=== PATIENT | female | born 1985 | race Caucasian/White ===

== ENCOUNTER 2018-07-04 05:37 | Inpatient (IN) | payer MEDICAID, OTHER ==
[~2018-07-04] VITALS: Ht 157.5 cm; Wt 63.1 kg
[2018-07-04 05:40] VITALS: Ht 157.5 cm; Wt 63.1 kg
[2018-07-04] MEDS ORDERED: METHYLERGONOVINE 0.2 MG INJ IM PRN ×2 (06:00→16:00)
[2018-07-04] MEDS ORDERED: OXYTOCIN 30 UNITS/LR 500 ML IV PRN ×2 (06:00→16:00)
[2018-07-04] MEDS ORDERED: CEFAZOLIN 2 GM/50 ML (PMX) 50 ML IVPB SCH (06:00)
[2018-07-04] MEDS ORDERED: CARBOPROST 250 MCG INJ IM PRN ×2 (06:00→16:00)
[2018-07-04] MEDS ORDERED: MISOPROSTOL 200 MCG TAB PR PRN ×2 (06:00→16:00)
[2018-07-04] MEDS: LACTATED RINGER'S 1,000 ML IV SCH ×2 (06:09→07:25)
[2018-07-04] MEDS ORDERED: AZITHROMYCIN 500MG/NS (PMX) 250 ML IVPB ONE (07:00)
[2018-07-04] MEDS ORDERED: CITRIC ACID/NA CITRATE 30 ML CUP ONE ×2 (07:12→07:13)
--- NOTE | 2018-07-04 07:12 | PREAC ---
Date/Time of Note Date/Time of Note DATE: 07/04/18 TIME: 07:11 Anesthesia Eval and Record Evaluation Time Pre-Procedure Interview DATE: 07/04/18 TIME: 07:11 Age 32 Sex female NPO: 8 hrs Preoperative diagnosis repeat c section Planned procedure csection Past Medical History Past Medical History: Includes : Gestational age: (39.1) Surgery & Anesthesia Issues No known issue Meds Anticoagulation: No Beta Kerrie within 24 hr: No Reason Beta Kerrie not given: Pt. not on B-Kerrie Current Medications Lactated Ringer's 1,000 ml @ 125 mls/hr Q8H IV Last administered on 07/04/18at 06:09; Admin Dose 125 MLS/HR; Start 07/04/18 at 05:42 Cefazolin Sodium/ Dextrose 50 ml @ 100 mls/hr ONCE IVPB ; Start 07/04/18 at 06:00 Oxytocin/Lactated Ringer's 500 ml @ 125 mls/hr POST IV ; Start 07/04/18 at 06:00 Oxytocin/Lactated Ringer's 500 ml @ 0 mls/hr ONCE PRN IV .VAGINAL BLEEDING; Start 07/04/18 at 06:00 Methylergonovine Maleate (Methergine) 0.2 mg ONCE PRN IM .VAGINAL BLEEDING; Start 07/04/18 at 06:00 Carboprost Tromethamine (Hemabate) 250 mcg ONCE PRN IM .VAGINAL BLEEDING; Start 07/04/18 at 06:00 Misoprostol (Cytotec) 1,000 mcg ONCE PRN ID .VAGINAL BLEEDING; Start 07/04/18 at 06:00 Azithromycin 250 ml @ 250 mls/hr ONCE ONCE IVPB ; Start 07/04/18 at 07:00; Stop 07/04/18 at 07:59 Meds reviewed: Yes Allergies Uncoded Allergies: SEAFOOD (Allergy, Severe, RASH, 07/04/18) Allergies Reviewed: Yes Labs/Studies Labs Reviewed: Reviewed by anesthesiologist Result Diagram: 07/04/18604 Laboratory Tests 07/04/18 06:05 Blood Bank Test 07/04/18 06:05 Antibody Screen NEGATIVE Blood Type O POSITIVE Rh Immune Globulin Candidate NO test: Positive Studies: ECG (n/a), CXR (n/a) Pre-procedure Exam Airway: Adequate mouth opening Mallampati: Mallampati I Teeth: Normal Lung: Normal Heart: Normal ASA Physical Status ASA physical status: 2 Emergency: None Planned Anesthetic Neuraxial: Spinal Planned Pain Management Sub-arachniod narcotics, Parenteral pain med Pre-operative Attestations Prior to commencing anesthesia and surgery, the patient was re-evaluated, there was verification of: *The patient's identity *The results of appropriate recent lab work and preoperative vital signs *The above evaluation not changing prior to induction *Anesthetic plan, risk benefits, alternative and complications discussed with patient/family; questions answered; patient/family understands, accepts and wishes to proceed. JAILYN BELCHER MD Jul 04, 2018 07:12
[2018-07-04] MEDS ORDERED: CITRIC ACID/NA CITRATE 30 ML CUP PO ONE (07:30)
--- NOTE | 2018-07-04 08:51 | HP ---
Date/Time of Note Date/Time of Note DATE: 07/04/18 TIME: 08:47 OB - History Hx of Present Free Text/Dictation 32 years old -0-1-1 with single intrauterine at 39 weeks with previous delivery desires repeat delivery. She declined the TOLAC. She states good movement. She denies nausea, vomiting, shortness of breath, chest pain, headache, visual changes, vaginal bleeding or LOF. Chief Complaint: Scheduled for repeat delivery Last Menstrual Period: Oct 03, 2017 Estimated Due Date: July 11, 2018 : 3 Para: 1 Spontaneous : 1 Therapeutic : 0 Care: Good Care Ultrasounds: Normal mid trimester US, Other Obstetrical Complications: None Medical Complications: None Past Family/Social History * Past Medical, Surgical, Family and Obstetric Histories reviewed from chart. Blood Type: O+ Rubella: immune RPR/VDRL: Negative GBS Status: Negative HBsAG: Negative OB Admission Exam Vital Signs Vital Signs Blood pressure 110/67, pulse rate 72/minutes, respiratory rate 16/minutes, temperature 98.3 Physical Exam HEENT: WNL Heart: Rhythm Normal Lungs: Clear Abdomen: WNL Extremities: Normal Membranes: Intact Heart Rate: 130's Accelerations: Accelerations Present Decelerations: No Decelerations Varibility: Moderate Contractions on Admission: >10 Minutes Apart Last 72 hours Lab Results CBC & BMP 07/04/18 06:05 OB Assessment/Plan Other plan: 32 years old -0-1-1 with previous delivery at 39 weeks desires repeat delivery. - FHR: No sign of metabolic acidosis- Category I - Continuous EFM, toco - CBC, blood type and screen - Please see the orders - O+/Rubella: Immune - GBS: Negative The risk of delivery including but not limited to bleeding, infection, injury to other organs (bowel, bladder, ureter, vessels, nerves), injury to fetus, blood transfusion, blood transfusion related infection, risk of anesthesia, adhesion, needs for future , removal of uterus or any other indicated surgery was discussed with the patient and her family. She expressed understanding. All of her questions were answered. She signed the informed consent. PHYSICIAN'S VERIFICATION OF INFORMED CONSENT The patient was counseled regarding the procedure, its indications, risks, potential complications and alternatives and any questions were answered. Consent was obtained. PLANNED PROCEDURE/TREATMENT: delivery with possible using vacuu m/forceps and any other indicated surgery PHYSICIAN'S VERIFICATION OF INFORMED CONSENT FOR BLOOD TRANSFUSION: There is a reasonable possibility that blood transfusion will be necessary as a result of the patient's procedure. I have discussed the following with the patient/patient's legal manufacturer's representative: An explanation of the benefits and risks of the transfusion of blood or blood products and the possible alternatives. All questions have been answered to the patient's satisfaction. INFORMED CONSENT:The patient has been informed of: The nature of the proposed care, treatment, services, medications, interventions or procedures. Potential benefits, risks or side effects, including potential problems related to recuperation. The likelihood of achieving care treatment and service goals. Reasonable alternatives to the proposed care, treatment and service. The relevant risks, benefits and side effects related to alternatives, including the possible results of not receiving care, treatment and services. When indicated, any limitations on the confidentiality of information learned from or about the patient. If appropriate, the risks, benefits and alternatives of the drugs to be used for sedation/analgesia including moderate sedation. If appropriate, patient has been provided information on the risks, benefits and alternatives to the transfusion of blood and/or blood products. If appropriate, patient has been provided information regarding the [place] Act. MARJ SILVA Jul 04, 2018 08:51
[2018-07-04] MEDS ORDERED: KETOROLAC 30 MG INJ ONE (09:36)
[2018-07-04] MEDS ORDERED: METOCLOPRAMIDE 10 MG INJ ONE (09:36)
[2018-07-04] MEDS ORDERED: ONDANSETRON 4 MG INJ ONE (09:36)
[2018-07-04] MEDS ORDERED: morphine SULFATE/PF (10 MG/10 ML) INJ ONE (09:36)
[2018-07-04] MEDS: OXYTOCIN 30 UNITS/LR 500 ML IV SCH ×2 (11:34→13:46)
[2018-07-04] MEDS ORDERED: KETOROLAC 30 MG INJ IV PRN (13:00)
[2018-07-04] MEDS ORDERED: ONDANSETRON 4 MG INJ IV PRN ×3 (13:00→19:00)
[2018-07-04] MEDS ORDERED: DIPHENHYDRAMINE 50 MG INJ IV PRN ×3 (13:00→19:00)
[2018-07-04] MEDS ORDERED: morphine (1 MG/ML) 10ML SYRINGE IV PRN ×3 (13:00)
[2018-07-04] MEDS ORDERED: NALOXONE (0.4 MG/ML) INJ IV PRN ×2 (13:30→19:00)
[2018-07-04] MEDS ORDERED: morphine 2 MG INJ IV PRN ×6 (13:30→19:00)
[2018-07-04 14:30] VITALS: BP 133/86; PULSE 65; RESP 18
[2018-07-04] MEDS ORDERED: OXYTOCIN 30 UNITS/LR 500 ML IV ONE (14:43)
[2018-07-04] MEDS: DEXTROSE 5%-LR 1,000 ML IV SCH (15:37)
[2018-07-04] MEDS ORDERED: OXYTOCIN 30 UNITS/LR 500 ML IV SCH (15:37)
[2018-07-04 16:00] VITALS: BP 119/74; PULSE 75; RESP 20
[2018-07-04] MEDS ORDERED: LANOLIN HPA 1 PKT TOP PRN (16:00)
[2018-07-04] MEDS ORDERED: METHYLERGONOVINE 0.2 MG TAB PO PRN (16:00)
[2018-07-04] MEDS ORDERED: DIPHTH/TET/ACEL PERTUSS (ADULT) 0.5 ML VIAL IM* ONE (17:30)
[2018-07-04 19:40] VITALS: BP 128/77; PULSE 72; RESP 20
--- NOTE | 2018-07-04 20:17 | OPR ---
Operative Report Planned Procedure Procedure date Jul 04, 2018 Procedure(s) Repeat low transverse delivery Performed by see signature line Coating Machine Helper: JUAN R LEHMAN MD Anesthesiologist: JAILYN BELCHER MD Pre-procedure diagnosis 32 years old -0-1-1 with single intrauterine at 39 weeks with previous delivery desires repeat delivery. She declined the TOLAC. [id number] Anesthesia Type: [id number] spinal Post-Procedure Post-procedure diagnosis 32 years old -0-1-1 with single intrauterine at 39 weeks with previous delivery desires repeat delivery. She declined the TOLAC. Findings 1. Normal uterus, fallopian tubes and ovaries 2. Viable male in cephalic presentation. 8 at one minute and 9 in 5 minutes. Weight: 3210 g - 7 pounds 1 ounce. Time of delivery: 10:12 3. Placenta with three vessel cord 4. Amniotic fluid - Clear Estimated Blood Loss: 600 - 700 mls Specimen(s) none Grafts/Implant(s) none Complication(s) none Pt Condition post procedure: stable Disposition: PACU Procedure Description INDICATION AND HISTORY: A 32 years old -0-1-1 with single intrauterine at 39 weeks with previous delivery desires repeat delivery. She declined the TOLAC. The risk of delivery including but not limited to bleeding, infection, injury to other organs (bowel, bladder, ureter, vessels, nerves), injury to fetus, blood transfusion, blood transfusion related infection, risk of anesthesia, adhesion, needs for future , removal of uterus or any other indicated surgery was discussed with the patient and her family. She expressed understanding. All of her questions were answered. She signed the informed consent. DESCRIPTION OF OPERATION: The patient was taken to the operating room, where she was identified and the procedure was verified. The patient received two gram of Ancef 30 minutes prior to surgery. Spinal anesthesia was placed. The patient placed in the dorsal supine position with a left tilt. The heart rate was 135 bpm. The patient was then prepped and draped in the normal sterile fashion. A Pfannenstiel skin incision was made and carried down to the fascia with knife. The fascia was incised in the midline and the fascial incision was carried laterally with Gonzalez scissors. The superior portion of the fascial incision was then grasped with Makayla clamps and tented up and dissected off the underlying rectus muscle with sharp dissection. The lower portion of the fascial incision was then made in a similar fashion. The rectus muscle was and the peritoneum was entered. The peritoneal incision was then stretched and an Daniel retractor was inserted. Then, an incision was made in the lower uterine segment in a transverse fashion with a knife and extended bluntly. The was delivered atraumatically in cephalic presentation with the above findings. The umbilical cord was clamped and cut. The neonatology resuscitation team was present and the baby was handed to them. A cord blood sample was obtained for further evaluation. The placenta and membrane, which appeared normal were Removed. The uterus was exteriorized and cleared of all clot and debris. The uterus was then closed in a two layer fashion with 0-Monocryl. At the time of closure, hemostasis was noted. The gutters were irrigated. The peritoneum was reapproximated with 3-0 Vicryl. The muscle was reapproximated with 3-0 Vicryl. The fascia was approximated with 0-Vicryl in a running fashion. The subcutaneous tissue was re approximated with 3-0 vicryl. The skin was closed with 4-0 Monocryl. All instruments, sponges and needle counts were correct x3. The patient tolerated the procedure well. She transferred to the recovery room in stable condition. MARJ SILVA Jul 04, 2018 20:17
[2018-07-04] MEDS: SENNA/DOCUSATE NA (8.6MG/50MG) TAB PO SCH (21:00)
[2018-07-04] MEDS: KETOROLAC 30 MG INJ IV PRN (23:58)
[2018-07-05] MEDS ORDERED: LACTATED RINGER'S 1,000 ML IV SCH
[2018-07-05] MEDS: DEXTROSE 5%-LR 1,000 ML IV SCH (00:11)
[2018-07-05 00:13] VITALS: BP 108/61; PULSE 77; RESP 20
--- NOTE | 2018-07-05 03:49 | PAC ---
Date/Time of Note Date/Time of Note DATE: 07/05/18 TIME: 03:49 Post-Anesthesia Notes Post-Anesthesia Note Last documented vital signs Vital Signs Date Temp Pulse Resp B/P (MAP) Pulse Ox O2 O2 Flow FiO2 Time Delivery Rate 07/05/18 98.9 77 20 108/61 96 Room Air 00:13 (77) Activity: WNL Respiratory function: WNL Cardiovascular function: WNL Mental status: Baseline Pain reasonably controlled: Yes Hydration appropriate: Yes Nausea/Vomiting absent: No JAILYN BELCHER MD Jul 05, 2018 03:49
--- NOTE | 2018-07-05 03:51 | OPPN ---
Date/Time of Note Date/Time of Note DATE: 07/05/18 TIME: 03:50 Anesthesia Follow up Anesthesia Follow up Last documented vital signs Vital Signs Date Temp Pulse Resp B/P (MAP) Pulse Ox O2 O2 Flow FiO2 Time Delivery Rate 07/05/18 98.9 77 20 108/61 96 Room Air 00:13 (77) Respiratory function: WNL Cardiovascular function: WNL Comments A 32 year s/p spinal duramorph for post op pain POD #1 is doing well, pain is controlled, No itching, headache, N/V, neural deficit, SOB. JAILYN BELCHER MD Jul 05, 2018 03:51
[2018-07-05 04:06] VITALS: BP 107/65; PULSE 69; RESP 18
[2018-07-05 08:00] VITALS: BP 108/64; PULSE 61; RESP 18
[2018-07-05] MEDS: SENNA/DOCUSATE NA (8.6MG/50MG) TAB PO SCH ×2 (08:35→21:45)
[2018-07-05] MEDS: KETOROLAC 30 MG INJ IV PRN (08:35)
[2018-07-05] MEDS ORDERED: HYDROCODONE/APAP (5/325) TAB NGT PRN (11:00)
[2018-07-05] MEDS ORDERED: DIPHTH/TET/ACEL PERTUSS (ADULT) 0.5 ML VIAL IM* ONE (11:00)
--- NOTE | 2018-07-05 13:15 | PN ---
Date/Time of Note Date/Time of Note DATE: 07/05/18 TIME: 13:12 OB Subjective Subjective Subjective Breast-feeding. Thighs are clear liquid diet. Passed flatus. As of the bed. Urinated. Reports decreased vaginal bleeding. Reports discomfort in both legs. OB Objective Objective Objective General appearance: Alert and oriented x4 does not appear to be in any acute distress Abdomen: Soft, appropriate tenderness in the incision Incision: No evidence of drainage, erythema or bleeding Lungs: Clear to auscultation bilaterally Breast: No evidence of mastitis or fissure engorgement extremities: Slight calf tenderness no cords palpable, , negative Homans sign Laboratory Tests Test 07/05/18 06:21 07/05/18 07:56 Lab Scanned Report REFERENCE LAB White Blood Count 12.2 H Red Blood Count 3.67 L Hemoglobin 12.0 Hematocrit 35.7 L Mean Corpuscular Volume 97.3 Mean Corpuscular Hemoglobin 32.7 Mean Corpuscular Hemoglobin Concent 33.6 Red Cell Distribution Width 12.9 Platelet Count 205 Mean Platelet Volume 10.1 Immature Granulocytes % 0.900 H Neutrophils % 71.0 Lymphocytes % 21.0 Monocytes % 6.3 Eosinophils % 0.6 Basophils % 0.2 Nucleated Red Blood Cells % 0.0 Immature Granulocytes # 0.110 H Neutrophils # 8.7 H Lymphocytes # 2.6 Monocytes # 0.8 Eosinophils # 0.1 Basophils # 0.0 Nucleated Red Blood Cells # 0.0 VS - Last 72 Hours, by Label Date Temp Pulse Resp B/P (MAP) Pulse Ox O2 O2 Flow FiO2 Time Delivery Rate 07/05/18 98.1 61 18 108/64 95 Room Air 08:00 (79) 07/05/18 98.2 69 18 107/65 96 Room Air 04:06 (79) 07/05/18 98.9 77 20 108/61 96 Room Air 00:13 (77) 07/04/18 97.9 72 20 128/77 96 Room Air 19:40 (94) 07/04/18 99.0 75 20 119/74 97 Room Air 16:00 (89) 07/04/18 98.7 65 18 133/86 97 Room Air 14:30 (102) OB Assessment/Plan Other Assessment: Status post repeat section Postop with a #1 Slight calf tenderness, low likelihood of DVT Patient is postop, post section Doppler of both lower extremities ordered routine post op care Follow up with the doppler MARLEE BARROW MD Jul 05, 2018 13:15
[2018-07-05] MEDS: IBUPROFEN 800 MG TAB PO SCH ×2 (14:30→21:45)
[2018-07-05] MEDS: HYDROCODONE/APAP (5/325) TAB GTB SCH ×2 (14:30→21:46)
[2018-07-05 15:29] VITALS: BP 118/80; PULSE 75; RESP 17
[2018-07-05 20:00] VITALS: BP 101/61; PULSE 81; RESP 20
[2018-07-06 03:41] VITALS: BP 118/71; PULSE 69; RESP 20
[2018-07-06] MEDS: IBUPROFEN 800 MG TAB PO SCH ×3 (05:30→22:00)
[2018-07-06] MEDS: HYDROCODONE/APAP (5/325) TAB GTB SCH ×3 (05:30→22:00)
[2018-07-06 08:00] VITALS: BP 124/78; PULSE 66; RESP 18
[2018-07-06] MEDS: SENNA/DOCUSATE NA (8.6MG/50MG) TAB PO SCH ×2 (09:45→20:41)
[2018-07-06] MEDS: MAGNESIUM HYDROXIDE 30ML CUP PO PRN (10:23)
[2018-07-06] MEDS ORDERED: NA PHOSPHATE/BIPHOS 133 ML ENEMA PR ONE (11:00)
--- NOTE | 2018-07-06 13:36 | QN ---
Documentation Comment passing gas but no B.M yet tolerating diet well vss afebrile abdomen soft wound dry calf neg for tenderness lochia min CBC ok A s/p Pc/s stable P expectant management CHINTAN MARR MD Jul 06, 2018 13:36
[2018-07-06 16:16] VITALS: BP 121/90; PULSE 72; RESP 16
[2018-07-06 19:40] VITALS: BP 114/71; PULSE 85; RESP 18
[2018-07-07 03:52] VITALS: BP 109/73; PULSE 71; RESP 17
[2018-07-07] MEDS: IBUPROFEN 800 MG TAB PO SCH ×3 (05:36→21:26)
[2018-07-07] MEDS: HYDROCODONE/APAP (5/325) TAB GTB SCH (05:36)
[2018-07-07 08:30] VITALS: BP 125/81; PULSE 75; RESP 18
[2018-07-07] MEDS ORDERED: DIPHTH/TET/ACEL PERTUSS (ADULT) 0.5 ML VIAL IM* ONE (09:00)
[2018-07-07] MEDS ORDERED: MEASLES,MUMPS,RUBELLA VACCINE INJ SC* ONE (09:00)
[2018-07-07] MEDS: SENNA/DOCUSATE NA (8.6MG/50MG) TAB PO SCH ×2 (09:48→21:26)
[2018-07-07] MEDS ORDERED: HYDROCODONE/APAP (5/325) TAB PO PRN (11:00)
--- NOTE | 2018-07-07 11:16 | PN ---
Date/Time of Note Date/Time of Note DATE: 07/07/18 TIME: 11:12 OB Subjective Subjective Subjective POD#3 Patient is doing well. She denies nausea, vomiting, shortness of breath, chest pain, headache. She has been ambulating without difficulty, tolerating regular diet. Pain is well controlled on current medications OB Objective Objective Objective VS - Last 72 Hours, by Label Date Temp Pulse Resp B/P (MAP) Pulse Ox O2 O2 Flow FiO2 Time Delivery Rate 07/07/18 98.0 75 18 125/81 Room Air 08:30 (96) 07/07/18 98.2 71 17 109/73 Room Air 03:52 (85) 07/06/18 98.1 85 18 114/71 Room Air 19:40 (85) 07/06/18 97.8 72 16 121/90 Room Air 16:16 (100) 07/06/18 98.1 66 18 124/78 Room Air 08:00 (93) 07/06/18 97.8 69 20 118/71 Room Air 03:41 (87) 07/05/18 98.7 81 20 101/61 Room Air 20:00 (74) 07/05/18 97.8 75 17 118/80 Room Air 15:29 (93) 07/05/18 98.1 61 18 108/64 95 Room Air 08:00 (79) 07/05/18 98.2 69 18 107/65 96 Room Air 04:06 (79) 07/05/18 98.9 77 20 108/61 96 Room Air 00:13 (77) 07/04/18 97.9 72 20 128/77 96 Room Air 19:40 (94) 07/04/18 99.0 75 20 119/74 97 Room Air 16:00 (89) 07/04/18 98.7 65 18 133/86 97 Room Air 14:30 (102) General: AAO X 3, comfortable, NAD, appropriate mood and affect. She is taking what medication she is taking any new ABD: +BS. Soft, non-tender. Uterus 2 cm below umbilicus Incision: Clear, dry, intact. No erythema, drainage or induration. Flank: No CVA tenderness (B/L) LE: Mild edema. No clubbing, cyanosis, thigh or calf tenderness (B/L). Homans 'sign is negative OB Assessment/Plan Other plan: 32-year-old -0-1-2 s/p repeat delivery at 39 weeks. POD#3 - AF, VSS - Contraception methods with R/B/A/FR discussed - Discharge home - Rx and instruction given - Follow up in one and 6 weeks MARJ SILVA Jul 07, 2018 11:16
--- NOTE | 2018-07-07 11:17 | DS ---
Date/Time of Note Date/Time of Note DATE: 07/07/18 TIME: 11:16 Obstetrical Discharge Record Final Diagnosis Final Diagnosis: Term delivered Other Final Diagnosis 32-year-old -0-1-2 s/p repeat delivery at 39 weeks. POD#3. course is unremarkable. She is ambulating and tolerating regular diet. She is voiding without difficulty. Pain is controlled in current medication - AF, VSS - Contraception methods with R/B/A/FR discussed - Discharge home - Rx and instruction given - Follow up in one and 6 weeks Section Section: Repeat Condition on Discharge Physical Assessment Voiding: Yes Bowel Movement: Yes Breast: Soft, non-tender Fundus: Firm Calf Tenderness: No Patient Condition: Stable MARJ SILVA Jul 07, 2018 11:17
[2018-07-07] MEDS: HYDROCODONE/APAP (5/325) TAB PO SCH ×2 (13:46→21:35)
[2018-07-07 15:55] VITALS: BP 129/86; PULSE 80; RESP 18
[2018-07-07 16:15] VITALS: RESP 18
[2018-07-07 19:30] VITALS: BP 127/75; PULSE 75; RESP 19
[2018-07-08 03:38] VITALS: BP 122/74; PULSE 78; RESP 17
[2018-07-08] MEDS: HYDROCODONE/APAP (5/325) TAB PO SCH ×2 (05:26→13:20)
[2018-07-08] MEDS: IBUPROFEN 800 MG TAB PO SCH ×2 (05:26→13:19)
[2018-07-08 08:35] VITALS: BP 148/97; PULSE 81; RESP 18
[2018-07-08] MEDS: SENNA/DOCUSATE NA (8.6MG/50MG) TAB PO SCH (08:47)
[2018-07-08] MEDS: MAGNESIUM HYDROXIDE 30ML CUP PO PRN (13:23)
--- NOTE | 2018-07-09 15:32 | DELSUM ---
Delivery Summary A-C Datetime Report Generated by CPN: 07/09/2018 15:32 DELIVERY PERSONNEL Stable Cleaner: Chao Conn MATERNAL INFORMATION Delivery Anesthesia: Spinal Medications in Delivery: see anesthesia records Delivery QBL (ml): 500 Placenta Cultured: No Maternal Complications: None LABOR SUMMARY EDC: 07/11/2018 00:00 No. Babies in Womb: 1 Attempted: No Labor Anesthesia: Intrathecal LABOR INFORMATION Reason for Induction: Not Applicable Onset of Labor: 07/04/2018 05:00 Oxytocin: N/A Group B Beta Strep: Negative Antibiotics # of Doses: 2 Ancef Antibiotics Time of Last Dose: 07/04/2018 09:42 Steroids Given: None Reason Steroids Not Administered: Not Applicable MEMBRANES Membranes Rupture Method: Artificial Rupture of Membranes: 07/04/2018 10:11 Length of Rupture (hr): 0.02 Amniotic Fluid Color: Clear Amniotic Fluid Amount: Moderate Amniotic Fluid Odor: None STAGES OF LABOR Stage 3 hr: 0 Stage 3 min: 2 Total Time in Labor hr: 5 Total Time in Labor min: 14 CSECTION DELIVERY Primary Indication: Repeat Elective CSection Urgency: Elective CSection Incidence: Repeat Labor: No Labor Elective: N/A CSection Incision: Lower Uterine Transverse BABY A INFORMATION Infant Delivery Date/Time: 07/04/2018 10:12 Method of Delivery: Born in Route : No : N/A Forceps: N/A Vacuum Extraction: N/A Shoulder Dystocia : N/A SHOULDER DYSTOCIA BABY A Infant Delivery Date/Time: 07/04/2018 10:12 PRESENTATION/POSITION BABY A Presentation: Cephalic Cephalic Presentation: Vertex Breech Presentation: N/A PLACENTA INFORMATION BABY A Placenta Delivery Time : 07/04/2018 10:14 Placenta Method of Delivery: Manual Removal Placenta Status: Delivered SCORES BABY A Heart Rate 1 min: >100 bpm Resp Effort 1 min: Good Cry Reflex Irritability 1 min: Cough/Sneeze/Pulls Away Muscle Tone 1 min: Active Motion Color 1 min: Blue/Pale Resuscitation Effort 1 min: Tactile Stimulation SCORE 1 MIN: 8 Heart Rate 5 min: >100 bpm Resp Effort 5 min: Good Cry Reflex Irritability 5 min: Cough/Sneeze/Pulls Away Muscle Tone 5 min: Active Motion Color 5 min: Body [place], Extremit Blue Resuscitation Effort 5 min: Tactile Stimulation SCORE 5 MIN: 9 INFORMATION BABY A Gestational Age at Delivery: 39.0 Gestational Status: Full Term- 39- 40.6 Weeks Outcome : Liveborn Infant Condition : Stable Infant Sex: Male IDENTIFICATION/MEDS BABY A ID Band Number: [id number] ID Band Location: Right Leg; Left Arm Sensor Applied: Yes Sensor Number: [id number] Sensor Location : Cord Clamp Vitamin K Given : Not Given Erythromycin Given: Not Given WEIGHT/LENGTH BABY A Infant Birthweight (gm): 3210 Weight (lb): 7 Infant Weight (oz): 1 Infant Length (in): 20.00 Infant Length (cm): 50.80 CORD INFORMATION BABY A No. Cord Vessels: 3 Nuchal Cord : N/A Cord Blood Taken: Yes Infant Suction: Mouth; Nose ASSESSMENT BABY A Complications: None Physical Findings at Delivery: Within Normal Limits Infant Respirations: Appears Normal Emergency Communications Officer/ALS Called : No Infant Care By: MAY Transferred To: Remains with Mother
== END 2018-07-08 13:35 | disposition home or self-care (01) | DRG 788 ==
LOC: L-D 05:37 → PP1 14:10
PROVIDERS: ADMIT Obstetrics & Gynecology; ATTEND Obstetrics & Gynecology
PROC: 10D00Z1 Extraction of Products of Conception, Low, Open Approach (ICD-10-PCS; principal; 2018-07-04 07:30)
DX: O65.5 Obstructed labor due to abnormality of maternal pelvic organs (principal); O34.211 Maternal care for low transverse scar from previous cesarean delivery; Z3A.39 39 weeks gestation of pregnancy; Z37.0 Single live birth
CPT/HCPCS: 85025; 85610; 85730; 86592; 86850; 86900; 86901; 93970; 99464; J0456; J0690; J1885; J2274; J2405; J2590; J2765; J7120; J7121